=== PATIENT | female | born 1990 | race African-American/Black ===

== ENCOUNTER 2016-04-18 00:32 | Emergency (ER) ==
[2016-04-18 00:50] VITALS: BP 128/82
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
[2016-04-18] MEDS ORDERED: NORCO-5 PO ONE (01:03)
== END 2016-04-18 01:27 | disposition home or self-care (01) ==
LOC: P.ED 00:32
DX: O26.891 Other specified pregnancy related conditions, first trimester (principal); R51 Headache; M54.5 Low back pain; R10.31 Right lower quadrant pain; O16.1 Unspecified maternal hypertension, first trimester; O99.331 Smoking (tobacco) complicating pregnancy, first trimester; F17.210 Nicotine dependence, cigarettes, uncomplicated; Z71.6 Tobacco abuse counseling; Z3A.00 Weeks of gestation of pregnancy not specified; V49.40XA Driver injured in collision with unspecified motor vehicles in traffic accident, initial encounter
CPT/HCPCS: 99282

== ENCOUNTER 2016-06-07 15:56 | Emergency (ER) ==
[2016-06-07 16:11] VITALS: BP 144/85
--- NOTE | 2016-06-07 18:09 | PROVIDER DOCUMENTATION ---
HPI-Female /OB/Breast - General Chief Complaint: Allergic Reaction Stated Complaint: ALLERGIC REACTION Time Seen by Provider: 06/07/16 17:53 Source: reports: patient Allergies/Adverse Reactions: Patient Allergies Allergy/AdvReac Type Severity Reaction Status Date / Time kiwi Allergy Intermediate RASH ON Verified 03/30/16 01:02 LIPS Penicillins Allergy Mild RASH Verified 03/30/16 01:02 Home Medications: Home Medication List Medication Instructions Recorded Confirmed Last Taken Type #103/Iron Fumarate/FA 06/07/16 Unknown History [ Tablet] - History of Present Illness-Female /OB Nature of Presenting Problem: 25 yo female presents to ER with c/o possible allergic reaction in vulva area to topical yeast medication, terconazole. She was recently on abx and she gets yeast infections easily. She was using monistat but it didn't seem to help. Does patient report she is ?: Yes (about 16 weeks) Location of complaint: reports: other (vulva) Radiation: reports: none Quality of Pain: reports: burning, other (itching) Severity in ED: reports: mild Onset/Duration: reports: 2 days ago Timing: reports: still present Context/Activities at Onset: reports: other (recent abx) Vaginal Symptoms: reports: itching Vaginal Bleeding Amount: None Pads/Day: 0 Urinary Symptoms: reports: no symptoms Related Symptoms: reports: no symptoms Sexual intercourse history: reports: Single Partner Contraception: reports: none Modifying Factors: improves with: nothing Associated Symptoms: reports: denies symptoms Similar Symptoms Previously?: Yes Recently seen or treated by another doctor?: Yes (OB-FACILITIES LOCATOR) Review of Systems - Adult - REVIEW OF SYSTEMS - ADULT Constitutional: reports: no symptoms reported Eyes: reports: no symptoms reported Ears, Nose, Mouth & Throat: reports: no symptoms reported Cardiovascular: reports: no symptoms reported Respiratory: reports: no symptoms reported Gastrointestinal: reports: no symptoms reported Genitourinary: reports: no symptoms reported Musculoskeletal: reports: no symptoms reported Integumentary: reports: see HPI, rash Neurological: reports: no symptoms reported Psychiatric: reports: no symptoms reported Endocrine: reports: no symptoms reported Hematologic/Lymphatic: reports: no symptoms reported Allergic/Immunologic: reports: no symptoms reported All Other Systems: Reviewed and Negative Past History - Adult - PAST MEDICAL HISTORY-ADULT Review of Records: reports: Old Records Reviewed, Nursing Assessment Review, Medications Reviewed, Social history reviewed & non-contributory. Major Childhood Illnesses: reports: denies history Cardiovascular: reports: HTN Respiratory: reports: denies history Gastrointestinal: reports: denies history Obstetrical/Gynecological: reports: denies history Genitourinary: reports: polycystic kidney disease Musculoskeletal: reports: denies history Neurological: reports: denies history Endocrine/Immune: reports: denies history Other Conditions: reports: denies history - PRIOR SURGERIES/PROCEDURES Surgical/Procedure History: reports: none - PRIOR HOSPITALIZATIONS Prior Hospitalizations: reports: none - IMMUNIZATION STATUS Childhood Immunizations: See Nurse Assessment Flu Vaccine: See Nurse Assessment - FAMILY HISTORY Family History: reviewed, not pertinent - SOCIAL HISTORY Smoking: cigarettes, less than 1 pack/day (3 CIG PER DAY) Provider spent 3-5 mins advising pt. on dangers of tobacco.: Discussed manners to quit use, and f/u contacts for add'l counseling. Substance Use: denies Alcohol Use Frequency: never (not while ) Living Situation: family Physical Exam-General - PHYSICAL EXAM-ADULT Initial Vital Signs Reviewed: Yes - CONSTITUTIONAL General Appearance: appears well, alert, no apparent distress - EYES Eyes: PERRL/EOMI - HEAD, EARS, NOSE, MOUTH & THROAT HENMT: normocephalic/atraumatic - RESPIRATORY Respiratory: no respiratory distress - GENITOURINARY Female Genitalia/Pelvic Exam: other (erythematous vulva area conssitent with yeast) Progress - PLAN OF CARE/RESULTS Progress/Plan/Lab Results: 1800-Discussed dx/tx/discharge and follow up with ob-radiologic technologist mammogram; she verbalized understanding. Vital Signs - 24 hr 06/07/16 16:07 Temperature 98 F Pulse Rate 82 Respiratory 18 Rate Blood Pressure 144/85 O2 Sat by Pulse 100 Oximetry Departure - Departure Time of Disposition Order: 18:09 DIAGNOSIS: Vaginal yeast infection Allergic reaction caused by a drug Qualifiers: Encounter type: initial encounter Qualified Code(s): T78.40XA - Allergy, unspecified, initial encounter Disposition: HOME 01 Certified Medical Emergency: Emergent Condition: Good Additional Instructions: Follow up with primary care doctor. Use over the counter monistat. Eat plain yogurt. ED Follow Up Instructions: You have been treated by a care provider in the Emergency Department. These instructions are being provided to you so you can have an understanding of how to care for yourself upon discharge. Upon discharge from the Emergency Department, you are responsible for making arrangements for follow-up care by a physician of your choice. Take all prescribed medications as directed. Return to the Emergency Department immediately for any new or worsening symptoms. You may call the Physician Referral phone number at [phone] to obtain a list of Physicians who are taking new patients. Referrals: None,PCP [Primary Care Provider] - Blanquita Pascual MD [STAFF PHYSICIAN] - Forms: Return to School/Parent Work Instructions: Mimi Infection, Adult, Drug Allergy Attestation - Physician/ STACEY Attestation Patient care was provided by Advanced Practice Provider:: Yes Advanced Practice Provider:: Daylin Coon Advanced Practice Provider documentation review:: The Mid-level provider documentation, treatment plan and medical decision making was reviewed by the physician who agrees with all treatment and medical decision making by the MLP.
== END 2016-06-07 18:27 | disposition home or self-care (01) ==
LOC: P.ED 15:56
DX: O23.592 Infection of other part of genital tract in pregnancy, second trimester (principal); N76.0 Acute vaginitis; Z3A.16 16 weeks gestation of pregnancy; B37.3 Candidiasis of vulva and vagina; O26.892 Other specified pregnancy related conditions, second trimester; T78.40XA Allergy, unspecified, initial encounter; L29.9 Pruritus, unspecified; R21 Rash and other nonspecific skin eruption; Q61.3 Polycystic kidney, unspecified; O16.2 Unspecified maternal hypertension, second trimester; O99.332 Smoking (tobacco) complicating pregnancy, second trimester; F17.210 Nicotine dependence, cigarettes, uncomplicated; Z71.6 Tobacco abuse counseling
CPT/HCPCS: 99281